=== PATIENT | male | born 1990 | race African-American/Black ===

== ENCOUNTER 2017-05-11 15:23 | Emergency (ER) | payer SELFPAY ==
[~2017-05-11] VITALS: Ht 182.9 cm; Wt 90.0 kg
[2017-05-11 15:41] VITALS: Ht 182.9 cm; Wt 90.0 kg
--- NOTE | 2017-05-11 17:07 | ERD ---
ER Documentation Chief Complaint Chief Complaint SORE THROAT X 2 DAYS HPI 26-year-old male otherwise healthy comes in with a 5 day history of sore throat , with a cough for the past 3 days. Patient states that he has had on-and-off painful swallowing but no difficulty handling secretions, voice changes or drooling. The cough has been dry. He has not had any hemoptysis, fevers or chills, chest pain or shortness of breath. He reports that he has had a sick contact at work. ROS All systems reviewed and are negative except as per history of present illness. PMhx/Soc Medical and Surgical Hx: pt denies Medical Hx, pt denies Surgical Hx Hx Alcohol Use: Yes Hx Substance Use: No Hx Tobacco Use: No Physical Exam Vitals Vital Signs Date Time Temp Pulse Resp B/P Pulse Ox O2 Delivery O2 Flow Rate FiO2 05/11/17 15:41 98.7 91 18 126/65 99 Physical Exam General: Well-developed, well-nourished. The patient appears in no acute distress. HEENT: Head is normocephalic, atraumatic. No scleral icterus. TMs are normal, oropharynx is clear. Neck: Supple. Nontender. Lungs: Clear to auscultation. Normal air movement. Heart: Regular rate and rhythm. S1 and S2 are normal. No murmurs, gallops, or rubs. Abdomen: Nondistended. Extremities: No clubbing or cyanosis. Moving extremities x 4. No weakness. Neurologic: Alert and oriented 3. No focal deficits. Normal speech and gait. Skin: Normal turgor. No rash or lesions. Procedures/MDM The patient is a 26-year-old male who comes in with an acute upper respiratory infection, presumed viral. The patient has a differential diagnosis of a viral upper respiratory infection, bacterial upper respiratory infection, bronchitis, pneumonia, pharyngitis, laryngitis, epiglottitis, croup, pneumonia. Patient has a normal pulmonary examination, clear breath sounds, normal pulse oximetry, with no corrective measures needed at this time. Fluids, rest, antipyretics were encouraged. Departure Diagnosis: Primary Impression: Sore throat Condition: Good Patient Instructions: Uri, Viral, No Abx (Adult) LAURA PAT PA-C May 11, 2017 17:07
== END 2017-05-11 17:47 | disposition home or self-care (01) ==
LOC: FTE 15:23
DX: J02.9 Acute pharyngitis, unspecified (principal)
CPT/HCPCS: 99282